=== PATIENT | male | born 1960 | race Hispanic/Latino ===

== ENCOUNTER 2018-12-21 12:02 | Day surgery (SDC) | payer BC, MEDICARE ==
[2018-12-16 09:12] VITALS: BMI 42.8
[2018-12-21] MEDS ORDERED: Midazolam 2 MG/2 ML VIAL ONE (13:30)
[2018-12-21] MEDS ORDERED: Propofol 10 mg/ml Inj (20 ML) ONE (13:30)
[2018-12-21] MEDS ORDERED: cefTRIAXone (Rocephin) 1 gm Inj ONE (13:43)
[2018-12-21] MEDS ORDERED: Bupivacaine 0.5% 50 ML IJ ONE (13:43)
[2018-12-21] MEDS ORDERED: Bacitracin Ointment 30 GM TUBE ONE (13:45)
[2018-12-21] MEDS ORDERED: Oxycodone/Acetaminophen 5/325 mg Tab PO PRN (13:52)
[2018-12-21] MEDS ORDERED: HYDROmorphone 0.5 mg/0.5 ml ISec IVP PRN (15:13)
[2018-12-21] MEDS ORDERED: Lactated Ringer's 1,000 ML IV SCH (15:15)
[2018-12-21 15:26] VITALS: TEMP 97.7
[2018-12-21 16:09] VITALS: RESP 18
[2018-12-21 16:30] VITALS: BP 137/82; PULSE 62; O2SAT 97
--- NOTE | 2018-12-29 09:51 | PN ---
DATE: 12/21/2018 IMMEDIATE POSTOPERATIVE NOTE See the history and physical and operative note. The patient is in the recovery room. Vital signs are within normal limits. Status post . Status post excision of a penile region. There are no complication. See the operative note for further details. See the history and physical for further details. The patient remains stable. PLAN: As follows, the patient will be discharged home. He has I explained all the findings for the patient and all the postoperative wound care explained to the patient. The patient can come to the office . Joshua Marie MD
--- NOTE | 2018-12-29 11:10 | OP ---
PROCEDURE DATE: 12/21/2018 PREOPERATIVE DIAGNOSIS: Right hydrocele and penile lesion. POSTOPERATIVE DIAGNOSIS: Right hydrocele and penile lesion. PROCEDURE: Right scrotal exploration, right hydrocelectomy, and an excision of a penile lesion of unknown behavior. COMPLICATIONS: There were no complications. SURGEON: Joshua Marie MD SPECIMENS: Hydrocele sac, , and penile lesion. ESTIMATED BLOOD LOSS: Less than 10 mL. INDICATIONS: See history and physical for further details. A very pleasant gentleman, here for the above listed procedure. We had discussed options, risks, benefits, and alternatives. During the procedure itself, the penile lesion was light in the field, pretty much at the base of the penis. We took pictures of the lesion, and I did not think that it should remain nearby all bahena. We excised it. There were no complications. UROLOGY FINDINGS: Otherwise, the patient has normal test results. He has a hydrocele. Ureteral orifice is seen. He has a penile lesion. At the termination of the procedure, this was the main lesion that was there, that was very large, was removed. The remainder of the small little lesions were not required to be removed. The patient tolerated the procedure well without any complications. PROCEDURE IN DETAIL: After obtaining informed consent, the patient was placed on the table, and timeout was called to confirm the patient and positioning. Antibiotic prophylaxis was used with Ancef. The procedure continued in the following fashion. The patient was prepped and draped in the usual sterile fashion. We made a skin incision through the right hemiscrotum. Slowly, carefully, meticulously through the underlying layers and achieving hemostasis. We then delivered the hydrocele in the sac intact. We now opened the joint of fluid probably about 300 mL of clear yellow fluid consistent with hydrocele fluid. The procedure continued with us now everting the edges, we sent a little piece of the hydrocele sac just to confirm the pathology. We everted the edges and restricted in a fashion, everting the outer edges. Around the testicles, testicles within normal limits. There is a little that we sent off to the specimen. We injected cord with some Marcaine with some local anesthetic, Marcaine and lidocaine. We closed the skin. We placed a Chandan drain. The patient tolerated the procedure well without complication. Further inspection revealed a lesion around the penis of unclear exact area, but it is definitely in the field and nearby. He has other similar lesions. But I do not want to begin with those. The patient wants to particularly not be there. So we now excised it without difficulty. We went nicely deep, appropriately deep. I then cauterized the base. We applied a dry bacitracin and dry sterile dressing. The patient tolerated the procedure without complication. Joshua Marie MD
--- NOTE | 2018-12-29 19:19 | HP ---
DATE OF EXAM: 12/21/2018 UROLOGY ADMISSION HISTORY AND PHYSICAL REASON FOR ADMISSION: Treatment of a hydrocele. HISTORY OF PRESENT ILLNESS: Mr. Sherwood is a very pleasant gentleman who presents now to the hospital with a plan for a right hydrocelectomy. He reports the size of this is discomforting to him when he is walking too much. He does not like its appearance. He also has other concerns. We discussed various options with the patient and he is here for a right hydrocelectomy. PAST MEDICAL AND SURGICAL HISTORY: Listed on the chart, history of an OH and CVA. He had a pneumothorax, see the previous notes. REVIEW OF SYSTEMS: As listed above, noncontributory. No weight loss, chest pain, shortness of breath, or leg pain. MEDICATIONS: Listed in chart. ALLERGIES: SEE CHART. SOCIAL HISTORY: He just returned from a vacation from [place]. He has got . Smoking history as listed in the chart. FAMILY HISTORY: All listed in the chart. PHYSICAL EXAMINATION GENERAL: A well-developed, well-nourished male in no apparent distress. Currently resting comfortably on a gurney. VITAL SIGNS: All listed on the chart. LUNGS: Clear. HEART: S1 and S2. ABDOMEN: Soft and nontender. No flank mass. Normal bowel sounds. GENITOURINARY: He has got no testicular masses. His right hemiscrotum shows the following; his right hemiscrotum is a bit enlarged. He has a noticeable hydrocele. We were just estimating to quantify the volume. Regarding his penis, he has a noticeable lesion at the base of his penis consistent with a wart. He also has some other ones that are more distal, little small skin lesions. The remainder of the exam, however, is unremarkable. RECTAL: Deferred at this point. LABORATORY DATA: See chart. Medical clearance from Dr. Olivarez is noted. DIAGNOSES: Right hydrocele. PLAN: As follows; we are planning to bring the patient to the operating room for a right hydrocelectomy. The main plan was to bring the patient to the operating room for a right scrotal exploration and right hydrocelectomy. Further plans will follow. Risk factors were discussed with the patient, specifically the risk of recurrence, the risk I explained to the patient is about 5% just now. I explained to the patient the benefits to the procedure, the risks to the procedure. After discussing all the various options with the patient, we are going to plan today. We discussed other options, we discussed , we discussed just draining the fluid and the risk of recurrence of this. After discussing all those different options with the patient the plan is as follows; 1. Antibiotic prophylaxis. 2. Hydrocele scrotal exploration. 3. Hydrocelectomy and then further plans will follow. ADDENDUM: See the operative note. We also removed and excised a penile lesion. The biopsy reported a penile lesion. We will see what the pathology is. See the body of the operative report. I explained all these findings to the patient as well. Joshua Marie MD
== END 2018-12-21 17:30 | disposition home or self-care (01) ==
LOC: SDS 12:02
PROVIDERS: ATTEND Urology
DX: N43.3 Hydrocele, unspecified (principal)
CPT/HCPCS: 55040; 88302; J0131; J0690; J1170; J2001; J2250; J2405; J2704; J2765; J3010; J7120 ×2